=== PATIENT | male | born 1995 | race Caucasian/White ===

== ENCOUNTER 2017-11-17 23:12 | Emergency (ER) | payer OTHER ==
[~2017-11-17] VITALS: Ht 157.5 cm; Wt 65.0 kg
[2017-11-17 23:31] VITALS: BP 147/92; PULSE 69; RESP 12; TEMP 99.2; O2SAT 100
--- NOTE | 2017-11-17 23:46 | PD ---
HPI Chief Complaint: Suicide Ideation/Attempt Time Seen by Provider: 23:39 Travel History International Travel<30 days: No Contact w/Intl Traveler<30days: No Traveled to known affect area: No History of Present Illness HPI This is a 22-year-old male who presents under Lopes act initiated by the [employer]. He reports a history of bipolar disorder. He reports that for the past month he has been feeling depressed and has had occasional suicidal thoughts. Specifically he reports that he wants to just go somewhere and starve himself. He reports that he would never act on these thoughts because he rubs his family too much. He reports that recently a family member as well as a family friend . He also had a relationship breakup. Symptoms are moderate, aggravated by changes with no relieving factors. He endorses occasional alcohol and occasional marijuana use. He denies any homicidal ideation, auditory visual hallucinations. He reports that in the past he was prescribed risperidone and Depakote but he ran out of these medications 8 months ago. He has no other complaints at this time. PFS Past Medical History Hx Anticoagulant Therapy: No Cardiovascular Problems: Yes Chemotherapy: No Cerebrovascular Accident: No Diabetes: No Respiratory: No ?: Not Past Surgical History Hysterectomy: No Social History Alcohol Use: Yes Tobacco Use: Yes Substance Use: Yes Allergies-Medications (Allergen,Severity, Reaction): Coded Allergies: No Known Allergies (Unverified , 11/17/17) Reported Meds & Prescriptions Reported Meds & Active Scripts Active Reported Depakote ER (Divalproex Sodium) 500 Mg Michele 500 Mg PO DAILY Concerta (Methylphenidate HCl) 54 Mg Michele 54 Mg PO DAILY Review of Systems Except as stated in HPI: all other systems reviewed are Neg Physical Exam Narrative GENERAL: Well-developed well-nourished male in no acute distress SKIN: Warm and dry. HEAD: Atraumatic. Normocephalic. EYES: Pupils equal and round. No scleral icterus. No injection or drainage. ENT: No nasal bleeding or discharge. Mucous membranes pink and moist. NECK: Trachea midline. No JVD. CARDIOVASCULAR: Regular rate and rhythm. No murmur appreciated. RESPIRATORY: No accessory muscle use. Clear to auscultation. Breath sounds equal bilaterally. GASTROINTESTINAL: Abdomen soft, non-tender, nondistended. Hepatic and splenic margins not palpable. MUSCULOSKELETAL: No obvious deformities. No clubbing. No cyanosis. No edema. NEUROLOGICAL: Awake and alert. No obvious cranial nerve deficits. Motor grossly within normal limits. Normal speech. PSYCHIATRIC: Appropriate mood and affect; insight and judgment normal. Data Data Last Documented VS Vital Signs Date Time Temp Pulse Resp B/P (MAP) Pulse Ox O2 Delivery O2 Flow Rate FiO2 11/17/17 23:31 99.2 69 12 147/92 (110) 100 Orders Orders Complete Blood Count With Diff (11/17/17 23:39) Comprehensive Metabolic Panel (11/17/17 23:39) Thyroid Stimulating Hormone (11/17/17 23:39) Valproic Acid (Depakene) (11/17/17 23:39) Psych Screen (11/17/17 23:39) Drug Screen, Random Urine (11/17/17 23:39) Alcohol (Ethanol) (11/17/17 23:39) Labs Laboratory Tests Test 11/17/17 23:29 11/17/17 23:45 White Blood Count 8.0 TH/MM3 Red Blood Count 4.81 MIL/MM3 Hemoglobin 14.8 GM/DL Hematocrit 43.9 % Mean Corpuscular Volume 91.2 FL Mean Corpuscular Hemoglobin 30.8 PG Mean Corpuscular Hemoglobin Concent 33.8 % Red Cell Distribution Width 12.9 % Platelet Count 228 TH/MM3 Mean Platelet Volume 7.8 FL Neutrophils (%) (Auto) 64.8 % Lymphocytes (%) (Auto) 26.1 % Monocytes (%) (Auto) 6.7 % Eosinophils (%) (Auto) 1.9 % Basophils (%) (Auto) 0.5 % Neutrophils # (Auto) 5.2 TH/MM3 Lymphocytes # (Auto) 2.1 TH/MM3 Monocytes # (Auto) 0.5 TH/MM3 Eosinophils # (Auto) 0.1 TH/MM3 Basophils # (Auto) 0.0 TH/MM3 CBC Comment DIFF FINAL Differential Comment Blood Urea Nitrogen 13 MG/DL Creatinine 0.82 MG/DL Random Glucose 79 MG/DL Total Protein 8.2 GM/DL Albumin 3.7 GM/DL Calcium Level 9.1 MG/DL Alkaline Phosphatase 66 U/L Aspartate Amino Transf (AST/SGOT) 12 U/L Alanine Aminotransferase (ALT/SGPT) 15 U/L Total Bilirubin 0.2 MG/DL Sodium Level 142 MEQ/L Potassium Level 3.6 MEQ/L Chloride Level 105 MEQ/L Carbon Dioxide Level 29.0 MEQ/L Anion Gap 8 MEQ/L Estimat Glomerular Filtration Rate 117 ML/MIN Thyroid Stimulating Hormone 3rd Gen 0.828 uIU/ML Valproic Acid (Depakene) Level 76 MCG/ML Ethyl Alcohol Level LESS THAN 3 MG/DL Urine Opiates Screen NEG Urine Barbiturates Screen NEG Urine Amphetamines Screen NEG Urine Benzodiazepines Screen NEG Urine Cocaine Screen NEG Urine Cannabinoids Screen NEG MDM Medical Decision Making Medical Screen Exam Complete: Yes Emergency Medical Condition: Yes Medical Record Reviewed: Yes Differential Diagnosis Adjustment reaction, acute psychosis, major depressive disorder, depressive disorder not otherwise specified, substance-induced mood disorder, bipolar disorder, schizophrenia Narrative Course 22-year-old male with reported history of bipolar disorder presents under Lopes act for psychiatric evaluation. Mental health screening discussed with the patient. Psychiatric screen ordered. Diagnosis Primary Impression: Medical clearance for psychiatric admission Yaniv Villaseñor Nov 17, 2017 23:46
[2017-11-17 23:56] LABS: AUTOMATED NEUTROPHIL # 5.2 TH/MM3 (1.8-7.7); BASOPHIL % 0.5 % (0.0-2.0); EOSINOPHIL # 0.1 TH/MM3 (0-0.4); EOSINOPHIL % 1.9 % (0.0-4.0); HEMATOCRIT 43.9 % (39.0-51.0); HEMOGLOBIN 14.8 GM/DL (13.0-17.0); LYMPH % 26.1 % (9.0-44.0); LYMPHOCYTE # 2.1 TH/MM3 (1.0-4.8); MEAN CELL VOLUME 91.2 FL (80.0-100.0); MEAN CORPUSCULAR HEMOGLOBIN 30.8 PG (27.0-34.0); MEAN CORPUSCULAR HGB CONC 33.8 % (32.0-36.0); MEAN PLATELET VOLUME 7.8 FL (7.0-11.0); MONO % 6.7 % (0.0-8.0); MONOCYTE # 0.5 TH/MM3 (0-0.9); NEUT % 64.8 % (16.0-70.0); PLATELET COUNT 228 TH/MM3 (150-450); RED BLOOD COUNT 4.81 MIL/MM3 (4.50-5.90); RED CELL DISTRIBUTION WIDTH 12.9 % (11.6-17.2)
[2017-11-17] MEDS ORDERED: CONC54TA4 PO (23:56)
[2017-11-17] MEDS ORDERED: DEPA500T3 PO (23:56)
[2017-11-18 00:07] LABS: ALBUMIN 3.7 GM/DL (3.4-5.0); ALT (GPT) 15 U/L (12-78); AST (GOT) 12 U/L (15-37); BLOOD UREA NITROGEN 13 MG/DL (7-18); CALCIUM 9.1 MG/DL (8.5-10.1); CHLORIDE 105 MEQ/L (98-107); CREATININE 0.82 MG/DL (0.60-1.30); GLOMERULAR FILTRATION RATE 117 ML/MIN (>89); GLUCOSE,RANDOM 79 MG/DL (74-106); SODIUM (NA) 142 MEQ/L (136-145)
[2017-11-18 00:17] LABS: ALKALINE PHOSPHATASE 66 U/L (45-117); TOTAL BILIRUBIN ADULT 0.2 MG/DL (0.2-1.0); TOTAL PROTEIN 8.2 GM/DL (6.4-8.2)
[2017-11-18 06:16] VITALS: BP 138/74; PULSE 62; RESP 15; O2SAT 100
[2017-11-18 07:22] VITALS: BP 119/57; PULSE 61; RESP 19; O2SAT 100
[2017-11-18] MEDS ORDERED: DIVALPROEX SODIUM DELAYED RELEASE 125 MG TAB PO ONE (08:15)
[2017-11-18] MEDS ORDERED: METHYLPHENIDATE HCL 27 MG CONTROLLED RELEASE TAB PO ONE (08:15)
[2017-11-18 12:40] VITALS: BP 134/87; PULSE 70; RESP 18; TEMP 98; O2SAT 100
[2017-11-18] MEDS ORDERED: DEPA500T3 PO ×2 (17:41)
[2017-11-18] MEDS ORDERED: RISP4TAB2 PO (17:42)
[2017-11-18] MEDS ORDERED: ZIPRASIDONE MESYLATE 20 MG VIAL IM ONE ×2 (18:10→18:15)
[2017-11-18] MEDS ORDERED: LORazepam 2 MG/ML VIAL ONE (18:10)
[2017-11-18] MEDS ORDERED: diphenhydrAMINE HCL 50 MG/ML VIAL ONE (18:10)
[2017-11-18] MEDS ORDERED: diphenhydrAMINE HCL 50 MG/ML VIAL IM ONE (18:15)
[2017-11-18] MEDS ORDERED: LORazepam 2 MG/ML VIAL IM ONE (18:15)
[2017-11-18 18:24] VITALS: BP 134/93; PULSE 82; RESP 20; TEMP 97.6; O2SAT 97
[2017-11-19 00:56] VITALS: BP 128/75; PULSE 57; RESP 16; TEMP 97.6; O2SAT 99
[2017-11-19 04:52] VITALS: BP 134/67; PULSE 78; RESP 16; TEMP 97.7; O2SAT 99
--- NOTE | 2017-11-19 10:05 | PD ---
Physical Exam Date Seen by Provider: Nov 19, 2017 Time Seen by Provider: 10:04 Narrative 22-year-old male with history of bipolar disorder presents emergency department under the Lopes act with suicidal ideation, has been medically cleared and evaluated by psychiatric staff. Patient is deemed psychiatrically stable for discharge at this time. Treatment and follow-up will be based on the psychiatric note. Patient remains medically stable for discharge at this time. Data Data Last Documented VS Vital Signs Date Time Temp Pulse Resp B/P (MAP) Pulse Ox O2 Delivery O2 Flow Rate FiO2 11/19/17 04:52 97.7 78 16 134/67 (89) 99 11/18/17 12:40 Room Air Orders Orders Complete Blood Count With Diff (11/17/17 23:39) Comprehensive Metabolic Panel (11/17/17 23:39) Thyroid Stimulating Hormone (11/17/17 23:39) Valproic Acid (Depakene) (11/17/17 23:39) Psych Screen (11/17/17 23:39) Drug Screen, Random Urine (11/17/17 23:39) Alcohol (Ethanol) (11/17/17 23:39) Diet Regular Basic (11/18/17 Breakfast) Divalproex Dr (Depakote Dr) (11/18/17 08:15) Methylphenidate Er (Concerta) (11/18/17 08:15) Diet Regular Basic (11/18/17 Dinner) Ziprasidone Inj (Geodon Inj) (11/18/17 18:15) Diphenhydramine Inj (Benadryl Inj) (11/18/17 18:15) Lorazepam Inj (Ativan Inj) (11/18/17 18:15) Lorazepam Inj (Ativan Inj) (11/18/17 18:10) Diphenhydramine Inj (Benadryl Inj) (11/18/17 18:10) Ziprasidone Inj (Geodon Inj) (11/18/17 18:10) Diet Regular Basic (11/19/17 Breakfast) Labs Laboratory Tests Test 11/17/17 23:29 11/17/17 23:45 White Blood Count 8.0 TH/MM3 Red Blood Count 4.81 MIL/MM3 Hemoglobin 14.8 GM/DL Hematocrit 43.9 % Mean Corpuscular Volume 91.2 FL Mean Corpuscular Hemoglobin 30.8 PG Mean Corpuscular Hemoglobin Concent 33.8 % Red Cell Distribution Width 12.9 % Platelet Count 228 TH/MM3 Mean Platelet Volume 7.8 FL Neutrophils (%) (Auto) 64.8 % Lymphocytes (%) (Auto) 26.1 % Monocytes (%) (Auto) 6.7 % Eosinophils (%) (Auto) 1.9 % Basophils (%) (Auto) 0.5 % Neutrophils # (Auto) 5.2 TH/MM3 Lymphocytes # (Auto) 2.1 TH/MM3 Monocytes # (Auto) 0.5 TH/MM3 Eosinophils # (Auto) 0.1 TH/MM3 Basophils # (Auto) 0.0 TH/MM3 CBC Comment DIFF FINAL Differential Comment Blood Urea Nitrogen 13 MG/DL Creatinine 0.82 MG/DL Random Glucose 79 MG/DL Total Protein 8.2 GM/DL Albumin 3.7 GM/DL Calcium Level 9.1 MG/DL Alkaline Phosphatase 66 U/L Aspartate Amino Transf (AST/SGOT) 12 U/L Alanine Aminotransferase (ALT/SGPT) 15 U/L Total Bilirubin 0.2 MG/DL Sodium Level 142 MEQ/L Potassium Level 3.6 MEQ/L Chloride Level 105 MEQ/L Carbon Dioxide Level 29.0 MEQ/L Anion Gap 8 MEQ/L Estimat Glomerular Filtration Rate 117 ML/MIN Thyroid Stimulating Hormone 3rd Gen 0.828 uIU/ML Valproic Acid (Depakene) Level 76 MCG/ML Ethyl Alcohol Level LESS THAN 3 MG/DL Urine Opiates Screen NEG Urine Barbiturates Screen NEG Urine Amphetamines Screen NEG Urine Benzodiazepines Screen NEG Urine Cocaine Screen NEG Urine Cannabinoids Screen NEG MDM Medical Record Reviewed: Yes Supervised Visit with MAURA: Yes Narrative Course 22-year-old male with history of bipolar disorder presents emergency department under the Lopes act with suicidal ideation, has been medically cleared and evaluated by psychiatric staff. Patient is deemed psychiatrically stable for discharge at this time. Treatment and follow-up will be based on the psychiatric note. Patient remains medically stable for discharge at this time. Diagnosis Primary Impression: Bipolar 1 disorder, depressed Patient Instructions: General Instructions Disposition: 01 DISCHARGE HOME Condition: Stable Sarthak George Nov 19, 2017 10:05
--- NOTE | 2017-11-19 17:01 | PD.PSY.CON ---
Provisional Diagnosis Admission Date Kiel I. Bipolar disorder, ADHD History of Present Illness Service Psychiatry Consult Requested By ER Reason for Consult Behavior dysregulation Primary Care Physician No Primary Care Physician HPI The patient is a 22-year-old man, domiciled with his mother in [facility], unemployed, supported by [facility], with psychiatric history of bipolar disorder, ADHD, is on Depakote 1000 milligrams twice daily, Concerta 54 mg, Risperdal 6 mg, he denies previous suicidal attempts, who presents under Lopes act initiated by the [employer]. He reports that for the past month he has been feeling depressed and has had occasional suicidal thoughts. Specifically he reports that he wants to just go somewhere and starve himself. He reports that he would never act on these thoughts because he rubs his family too much. He reports that recently a family member as well as a family friend . He also had a relationship breakup. Symptoms are moderate, aggravated by changes with no relieving factors. He endorses occasional alcohol and occasional marijuana use. He denies any homicidal ideation, auditory visual hallucinations. He reports that in the past he was prescribed risperidone and Depakote but he ran out of these medications 8 months ago. He has no other complaints at this time. EMR reviewed. Collateral information from his mother was contacted ,[phone]. The patient became quite agitated and aggressive last night had to be medicated with Geodon 20 mg IM to calm him down. Today the patient is calm, cooperative, logical, coherent and relevant. The patient reports that he feels much better. He says that yesterday he was feeling terrible and a friend recommended him to come here. He reports that he has been taking his medication as prescribed, no significant side effects. He now denies depression, denies anxiety, denies maximino and psychosis, he denies suicidal and homicidal ideation, he denies visual and auditory hallucinations. Patient is calm, cooperative,. Review of Systems Constitutional: DENIES: Diaphoretic episodes, Fatigue, Fever, Weight gain, Weight loss, Chills, Dizziness, Change in appetite, Night Sweats Endocrine: DENIES: Heat/cold intolerance, Polydipsia, Polyuria, Polyphagia Eyes: DENIES: Blurred vision, Diplopia, Eye inflammation, Eye pain, Vision loss , Photosensitivity, Double Vision Ears, nose, mouth, throat: DENIES: Tinnitus, Hearing loss, Vertigo, Nasal discharge, Oral lesions, Throat pain, Hoarseness, Ear Pain, Running Nose, Epistaxis, Sinus Pain, Toothache, Odynophagia Respiratory: DENIES: Apneas, Cough, Snoring, Wheezing, Hemoptysis, Sputum production, Shortness of breath Cardiovascular: DENIES: Chest pain, Palpitations, Syncope, Dyspnea on Exertion , PND, Lower Extremity Edema, Orthopnea, Claudication Gastrointestinal: DENIES: Abdominal pain, Black stools, Bloody stools, Constipation, Diarrhea, Nausea, Vomiting, Difficulty Swallowing, Anorexia Genitourinary: DENIES: Sexual dysfunction, Urinary frequency, Urinary incontinence, Urgency, Hematuria, Dysuria, Nocturia, Penile Discharge, Testicular Pain, Testicular Swelling Musculoskeletal: DENIES: Joint pain, Muscle aches, Stiffness, Joint Swelling, Back pain, Neck pain Integumentary: DENIES: Abnormal pigmentation, Nail changes, Pruritus, Rash Hematologic/lymphatic: DENIES: Bruising, Lymphadenopathy Immunologic/allergic: DENIES: Eczema, Urticaria Neurologic: DENIES: Abnormal gait, Headache, Localized weakness, Paresthesias, Seizures, Speech Problems, Tremor, Poor Balance Psychiatric: DENIES: Anxiety, Confusion, Mood changes, Depression, Hallucinations, Agitation, Suicidal Ideation, Homicidal Ideation, Delusions Past Family Social History Coded Allergies: No Known Allergies (Unverified , 11/18/17) Per patient's father. Reported Medications Risperidone (Risperidone) 4 Mg Tab, 6 MG PO HS, #30 TAB 0 Refills 11/18/17 Divalproex ER (Depakote ER) 500 Mg Michele, 1000 MG PO HS for Control Seizures, # 60 TAB 0 Refills 11/18/17 Divalproex ER (Depakote ER) 500 Mg Michele, 500 MG PO DAILY for Control Seizures, #30 TAB 0 Refills 11/18/17 Methylphenidate ER 24 HR (Concerta) 54 Mg Michele, 54 MG PO DAILY for ADHD, #30 TAB 0 Refills 11/17/17 Discontinued Reported Medications Divalproex ER (Depakote ER) 500 Mg Michele, 500 MG PO DAILY for Control Seizures, #30 TAB 0 Refills 11/17/17 Family Psych History No family psychiatric history Social History Patient was born and raised in [facility], he lives in [facility] [place] with his mother, unemployed, supported by [facility], his highest level of education is 11th grade Physical Exam Vital Signs Vital Signs Date Time Temp Pulse Resp B/P (MAP) Pulse Ox O2 Delivery O2 Flow Rate FiO2 11/19/17 11:05 11/19/17 04:52 97.7 78 16 99 11/18/17 12:40 Room Air Mental Status Examination Appearance: Appropriate Consciousness: Alert Orientation: x4 Motor Activity: Normal gait Speech: Unremarkable Language: Adequate Fund of Knowledge: Adequate Attention and Concentration: Adequate Memory: Unremarkable Mood: Appropriate Affect: Appropriate Thought Process & Associations: Intact Thought Content: Appropriate Hallucination Type: None Delusion Type: None Suicidal Ideation: No Suicidal Plan: No Suicidal Intention: No Homicidal Ideation: No Homicidal Plan: No Homicidal Intention: No Insight: Adequate Judgment: Adequate Assessment & Plan Problem List: (1) Bipolar disorder ICD Codes: F31.9 - Bipolar disorder, unspecified Assessment & Plan: Patient is not baseline. Denies depression, denies maximino, no psychosis, denies anxiety. Denies suicidal enemas ideation, he denies visual and auditory hallucinations. Patient was treated with Geodon 20 mg IM last night for initial agitation. This morning I will given his Depakote 1000. He does not meet criteria for involuntary psychiatric admission. His mother agrees that he can been seen back home, and continue psychiatric care as an outpatient. Lopes act will be lifted Assessment & Plan Estimated LOS: Zbigniew Ayers MD Nov 19, 2017 17:01
== END 2017-11-19 11:25 | disposition home or self-care (01) ==
LOC: NEPD 23:12 → NEPJ 11-19 11:25
DX: F31.9 Bipolar disorder, unspecified (principal); F12.90 Cannabis use, unspecified, uncomplicated; Z72.0 Tobacco use
CPT/HCPCS: 80053; 80164; 80307; 84443; 85025; 96372; 99284; J1200; J2060; J3486